=== PATIENT | male | born 1980 | race Two or more races ===

== ENCOUNTER 2019-04-09 02:01 | Emergency (ER) | payer OTHER ==
[~2019-04-09] VITALS: Ht 180.3 cm; Wt 148.3 kg
[2019-04-09 02:07] VITALS: BP 137/76
[2019-04-09] MEDS ORDERED: BACI/NEOM/POLY B OINT PKT 1 UDPKT PACKET TP ONE (03:00)
[2019-04-09] MEDS ORDERED: CLINDAMYCIN HCL 150 MG CAPSULE PO ONE ×2 (03:00→03:01)
== END 2019-04-09 03:12 | disposition home or self-care (01) ==
LOC: ER 02:01
DX: L03.113 Cellulitis of right upper limb (principal); J45.909 Unspecified asthma, uncomplicated; I10 Essential (primary) hypertension; F10.10 Alcohol abuse, uncomplicated; F17.200 Nicotine dependence, unspecified, uncomplicated; Y90.9 Presence of alcohol in blood, level not specified; Z60.2 Problems related to living alone; Z98.890 Other specified postprocedural states